=== PATIENT | female | born 1955 | race Hispanic/Latino ===

== ENCOUNTER → 2020-08-26 | Outpatient (CLI) | payer MEDICARE ==
[~2020-08-26] MED LIST: ATORVASTATIN CA40 MG PO; ENALAPRIL MALE2.5 MG PO; ERGOCALCIFEROL1 GM PO; FUROSEMIDE40 MG/4 ML PO; GABAPENTIN100 MG PO; GABAPENTIN300 MG PO; HUMULIN-R100 UNITS/ SQ; ISOSORBIDE MONO20 MG PO; LASIX40 MG PO; LEVAQUIN500 MG PO; METOPROLOL TART50 MG PO; NEXIUM40 MG PO; NOVOLIN N100 UNIT/1 SQ; PEPCID40 MG PO; TOPROL XL25 MG PO; ZOFRAN ODT4 MG SL
== END | DRG 951 ==
LOC: DX 15:41 → EDSTATUS 08-29 07:30
PROVIDERS: ATTEND Internal Medicine Gastroenterology
DX: Z01.812 Encounter for preprocedural laboratory examination (principal); Z20.822 Contact with and (suspected) exposure to COVID-19; Z01.818 Encounter for other preprocedural examination; R19.7 Diarrhea, unspecified; R63.4 Abnormal weight loss; R11.10 Vomiting, unspecified; E11.9 Type 2 diabetes mellitus without complications; I10 Essential (primary) hypertension
CPT/HCPCS: 93005; U0002

== ENCOUNTER 2020-10-07 10:11 | Inpatient (IN) | payer MEDICARE, OTHER ==
[~2020-10-07] VITALS: Ht 144.8 cm; Wt 45.4 kg
[2020-10-07 11:04] LABS: BASOPHILS # (AUTO) 0.1 (0.0-0.1); EOSINOPHILS # (AUTO) 0.1 (0.0-0.4); EOSINOPHILS % 0.8 % (0.0-6.0); HEMATOCRIT 28.8 % (34.2-44.1); HEMOGLOBIN 9.6 g/dL (12.0-16.0); LYMPHOCYTES # (AUTO) 2.6 (1.0-3.2); LYMPHOCYTES % 35.4 % (18.0-39.1); MEAN CORPUSCULAR HEMOGLOBIN 29.1 pg (28-32); MEAN CORPUSCULAR HGB CONC 33.3 g/dL (31-35); MEAN CORPUSCULAR VOLUME 87.3 fL (81-99); MONOCYTES # (AUTO) 0.5 (0.2-0.8); MONOCYTES % 6.7 % (4.4-11.3); NEUTROPHILS # (AUTO) 4.1 (2.1-6.9); NEUTROPHILS % 55.8 % (38.7-80.0); PLATELET COUNT 192 x10e3/uL (140-360); RED CELL DISTRIBUTION WIDTH 16.6 % (11.7-14.4)
[2020-10-07 11:27] LABS: INR 1.18; PROTHROMBIN TIME 15.8 seconds (11.9-14.5)
[2020-10-07 11:28] LABS: PARTIAL THROMBOPLASTIN TIME 42.5 seconds (23.8-35.5)
[2020-10-07 11:34] LABS: ALBUMIN 1.3 g/dL (3.5-5.0); ALBUMIN/GLOBULIN RATIO 0.2 (0.8-2.0); ANION GAP 19.5 mmol/L (8-16); CALCIUM 7.1 mg/dL (8.4-10.2); CREATININE, SERUM 7.48 mg/dL (0.57-1.11); MAGNESIUM 1.9 MG/DL (1.3-2.1); POTASSIUM 4.5 mmol/L (3.5-5.1)
[2020-10-07] MEDS ORDERED: SODIUM CHLORIDE 0.9% 50ML 50 ML ONE (11:45)
[2020-10-07] MEDS ORDERED: DEXTROSE 50% SYRINGE 50 ML IV PRN ×2 (11:45→13:45)
[2020-10-07] MEDS ORDERED: IOPAMIDOL 370 MG/ML 200 ML INFUS..BTL INJ ONE (11:45)
[2020-10-07 11:47] LABS: CREATINE KINASE MB 1.1 ng/mL (0-5.0)
[2020-10-07] MEDS ORDERED: DEXTROSE 50% SYRINGE 50 ML IV ONE ×2 (11:47→11:50)
[2020-10-07] MEDS: DEXTROSE 5% 1,000 ML IV SCH (12:17)
[2020-10-07] MEDS ORDERED: SODIUM CHLORIDE 0.9% 1000ML 2,000 ML ONE (13:54)
[2020-10-07 20:15] VITALS: BP 152/65
[2020-10-07 20:47] LABS: CREATINE KINASE MB 1.4 ng/mL (0-5.0)
[2020-10-07 21:00] VITALS: BP 152/65
[2020-10-07 23:00] VITALS: BP 152/65
[2020-10-07] MEDS ORDERED: HYDRALAZINE HCL 20 MG/ML VIAL IV PRN (23:00)
[2020-10-07] MEDS ORDERED: ONDANSETRON HCL INJ 2MG/ML 2ML 2 MG/ML VIAL IV PRN (23:00)
[2020-10-07 23:52] VITALS: BP 132/57
[2020-10-08] MEDS: DEXTROSE 5% 1,000 ML IV SCH ×2 (04:04→23:38)
[2020-10-08] MEDS: PANTOPRAZOLE 40 MG 10ML VIAL IV SCH ×2 (04:04→14:48)
[2020-10-08 05:22] VITALS: BP 127/44
[2020-10-08 06:21] LABS: BASOPHILS % 0.7 % (0.0-1.0); EOSINOPHILS # (AUTO) 0.1 (0.0-0.4); EOSINOPHILS % 1.1 % (0.0-6.0); HEMATOCRIT 25.2 % (34.2-44.1); HEMOGLOBIN 8.5 g/dL (12.0-16.0); LYMPHOCYTES # (AUTO) 1.2 (1.0-3.2); LYMPHOCYTES % 26.6 % (18.0-39.1); MEAN CORPUSCULAR HEMOGLOBIN 29.5 pg (28-32); MEAN CORPUSCULAR HGB CONC 33.7 g/dL (31-35); MEAN CORPUSCULAR VOLUME 87.5 fL (81-99); MONOCYTES # (AUTO) 0.4 (0.2-0.8); MONOCYTES % 8.8 % (4.4-11.3); NEUTROPHILS # (AUTO) 2.9 (2.1-6.9); NEUTROPHILS % 62.6 % (38.7-80.0); PLATELET COUNT 152 x10e3/uL (140-360); RED BLOOD COUNT 2.88 x10e6/uL (3.6-5.1); RED CELL DISTRIBUTION WIDTH 16.2 % (11.7-14.4)
[2020-10-08 07:20] LABS: ALBUMIN 1.1 g/dL (3.5-5.0); ALBUMIN/GLOBULIN RATIO 0.2 (0.8-2.0); ANION GAP 10.8 mmol/L (8-16); CREATININE, SERUM 3.8 mg/dL (0.57-1.11); POTASSIUM 3.8 mmol/L (3.5-5.1)
[2020-10-08 07:24] LABS: CALCIUM 6.9 mg/dL (8.4-10.2)
[2020-10-08 08:10] LABS: IRON 37 ug/dL (50-170); TRANSFERRIN < 70 mg/dL (180-382)
[2020-10-08 08:12] LABS: CHOL/HDL RATIO 3.6 (3.0-3.6); PHOSPHORUS 2.6 MG/DL (2.3-4.7)
[2020-10-08 08:16] VITALS: BP 126/43
[2020-10-08 08:20] VITALS: BP 126/43
[2020-10-08 08:32] LABS: THYROID STIMULATING HORMONE 39.323 uIU/mL (0.350-4.940)
[2020-10-08 11:48] VITALS: BP 129/55
[2020-10-08] MEDS ORDERED: OMEPRAZOLE40 MG PO (12:57)
[2020-10-08] MEDS ORDERED: GABAPENTIN100 MG PO (12:57)
[2020-10-08] MEDS ORDERED: FUROSEMIDE40 MG PO (12:57)
[2020-10-08] MEDS ORDERED: HYDRALAZINE HCL50 MG PO (12:57)
[2020-10-08] MEDS ORDERED: LEVOTHYROXINE50 MCG PO (12:57)
[2020-10-08] MEDS ORDERED: AMIODARONE HCL100 MG PO (12:57)
[2020-10-08] MEDS ORDERED: HYDROXYZINE PAM25 MG PO (12:57)
[2020-10-08] MEDS ORDERED: CLONIDINE HCL0.1 MG PO (12:57)
[2020-10-08] MEDS ORDERED: ONDANSETRON ODT8 MG PO (12:57)
[2020-10-08] MEDS ORDERED: ZYRTEC10 MG PO (12:57)
[2020-10-08 16:27] VITALS: BP 139/59
[2020-10-08] MEDS: LEVOTHYROXINE SODIUM 75 MCG TAB PO SCH (16:45)
[2020-10-08] MEDS: HYDRALAZINE HCL 25 MG TAB PO SCH (17:00)
[2020-10-08] MEDS ORDERED: NON-FORMULARY MEDICATION (Hydralazine Hcl* 50 MG) PO SCH (17:00)
[2020-10-08] MEDS: HYDROXYZINE HCL 25 MG TAB PO SCH (19:20)
[2020-10-08] MEDS: IRON SUCROSE 100 MG in SODIUM CHLORIDE 0.9% 100 ML 100 ML IV SCH (19:39)
[2020-10-08 20:00] VITALS: BP 125/53
[2020-10-09] VITALS (9 sets, daily range): BP systolic 102–167; BP diastolic 33–76
[2020-10-09] MEDS: PANTOPRAZOLE 40 MG 10ML VIAL IV SCH ×2 (02:07→14:21)
[2020-10-09] MEDS: LEVOTHYROXINE SODIUM 75 MCG TAB PO SCH (06:00)
[2020-10-09] MEDS ORDERED: NON-FORMULARY MEDICATION (Cetirizine Hcl (Zyrtec) 10 MG) PO SCH (09:00)
[2020-10-09] MEDS: HYDRALAZINE HCL 25 MG TAB PO SCH ×2 (09:00→17:00)
[2020-10-09] MEDS: HYDROXYZINE HCL 25 MG TAB PO SCH ×3 (09:00→20:30)
[2020-10-09] MEDS: AMIODARONE HCL 200 MG TAB PO SCH (13:30)
[2020-10-09] MEDS: LORATADINE 10 MG TAB PO SCH (13:30)
[2020-10-09] MEDS: IRON SUCROSE 100 MG in SODIUM CHLORIDE 0.9% 100 ML 100 ML IV SCH (15:00)
[2020-10-10] VITALS: BP 125/51
[2020-10-10 04:30] VITALS: BP 125/51
[2020-10-10] MEDS: PANTOPRAZOLE 40 MG 10ML VIAL IV SCH (04:50)
[2020-10-10 05:08] LABS: BASOPHILS % 0.9 % (0.0-1.0); EOSINOPHILS % 0.7 % (0.0-6.0); HEMATOCRIT 26.7 % (34.2-44.1); HEMOGLOBIN 9.1 g/dL (12.0-16.0); LYMPHOCYTES # (AUTO) 1.3 (1.0-3.2); MEAN CORPUSCULAR HEMOGLOBIN 29.7 pg (28-32); MEAN CORPUSCULAR HGB CONC 34.1 g/dL (31-35); MEAN CORPUSCULAR VOLUME 87.3 fL (81-99); MONOCYTES # (AUTO) 0.4 (0.2-0.8); MONOCYTES % 9.1 % (4.4-11.3); NEUTROPHILS # (AUTO) 2.7 (2.1-6.9); NEUTROPHILS % 60.1 % (38.7-80.0); PLATELET COUNT 118 x10e3/uL (140-360); RED BLOOD COUNT 3.06 x10e6/uL (3.6-5.1); RED CELL DISTRIBUTION WIDTH 16.5 % (11.7-14.4)
[2020-10-10 05:24] LABS: ANION GAP 9.7 mmol/L (8-16); CREATININE, SERUM 3.09 mg/dL (0.57-1.11); POTASSIUM 3.7 mmol/L (3.5-5.1)
[2020-10-10 05:54] LABS: CALCIUM 6.7 mg/dL (8.4-10.2)
[2020-10-10] MEDS: LEVOTHYROXINE SODIUM 75 MCG TAB PO SCH (06:08)
[2020-10-10 07:53] VITALS: BP 91/33
[2020-10-10] MEDS: HYDROXYZINE HCL 25 MG TAB PO SCH ×2 (08:35→15:00)
[2020-10-10] MEDS: LORATADINE 10 MG TAB PO SCH (08:35)
[2020-10-10] MEDS: HYDRALAZINE HCL 25 MG TAB PO SCH ×2 (08:35→17:00)
[2020-10-10] MEDS: AMIODARONE HCL 200 MG TAB PO SCH (08:35)
[2020-10-10 08:36] VITALS: BP 91/33
[2020-10-10] MEDS ORDERED: ACETAMINOPHEN/CODEINE 300MG - 30MG TAB PO PRN (10:15)
[2020-10-10] MEDS ORDERED: ACETAMINOPHEN 325 MG TAB PO PRN (10:15)
[2020-10-10] MEDS ORDERED: MELATONIN 5 MG TABLET PO PRN (10:15)
[2020-10-10] MEDS ORDERED: HYDRALAZINE HCL 20 MG/ML VIAL IV PRN (10:15)
[2020-10-10] MEDS ORDERED: SYNTHROID75 MCG PO (10:44)
[2020-10-10] MEDS ORDERED: PANTOPRAZOLE SO40 MG PO (10:44)
[2020-10-10 11:38] VITALS: BP 101/36
[2020-10-10] MEDS ORDERED: LIDOCAINE HCL 2% LOCAL INJ 5 ML SDV VIAL INJ ONE (13:05)
[2020-10-10] MEDS ORDERED: PROPOFOL IV EMULSION 10 MG/ML 20 ML VIAL ONE (13:05)
[2020-10-10] MEDS ORDERED: MIDAZOLAM HCL 2 MG/2 ML VIAL ONE (13:31)
[2020-10-10 15:25] VITALS: BP 128/62
[2020-10-10] MEDS ORDERED: ONDANSETRON HCL 4 MG ORAL DISINTEGRATING TAB PO PRN (18:30)
[2020-10-10] MEDS: IRON SUCROSE 100 MG in SODIUM CHLORIDE 0.9% 100 ML 100 ML IV SCH (18:30)
[2020-10-10] MEDS ORDERED: PANTOPRAZOLE SOD 40 MG TABEC PO SCH (21:00)
== END 2020-10-10 19:07 | disposition home health service (06) | DRG 391 ==
LOC: ER 10:54 → ERHOLD 13:31 → MED/SURG2 18:49
PROVIDERS: ADMIT Internal Medicine; ATTEND Internal Medicine
PROC: 5A1D70Z Performance of Urinary Filtration, Intermittent, Less than 6 Hours Per Day (ICD-10-PCS; principal; 2020-10-07)
PROC: 5A1D70Z Performance of Urinary Filtration, Intermittent, Less than 6 Hours Per Day (ICD-10-PCS; 2020-10-09)
PROC: 0DB68ZX Excision of Stomach, Via Natural or Artificial Opening Endoscopic, Diagnostic (ICD-10-PCS; 2020-10-10)
PROC: 0D748ZZ Dilation of Esophagogastric Junction, Via Natural or Artificial Opening Endoscopic (ICD-10-PCS; 2020-10-10)
DX: K22.2 Esophageal obstruction (principal); N18.6 End stage renal disease; K22.11 Ulcer of esophagus with bleeding; E44.1 Mild protein-calorie malnutrition; I12.0 Hypertensive chronic kidney disease with stage 5 chronic kidney disease or end stage renal disease; R18.8 Other ascites; R45.851 Suicidal ideations; K80.10 Calculus of gallbladder with chronic cholecystitis without obstruction; D62 Acute posthemorrhagic anemia; K76.6 Portal hypertension; R62.7 Adult failure to thrive; E11.22 Type 2 diabetes mellitus with diabetic chronic kidney disease; R10.9 Unspecified abdominal pain; Z68.21 Body mass index [BMI] 21.0-21.9, adult; Z99.2 Dependence on renal dialysis; K21.9 Gastro-esophageal reflux disease without esophagitis; E78.5 Hyperlipidemia, unspecified; Z88.0 Allergy status to penicillin; Z88.8 Allergy status to other drugs, medicaments and biological substances; E11.649 Type 2 diabetes mellitus with hypoglycemia without coma; I25.2 Old myocardial infarction; Z95.1 Presence of aortocoronary bypass graft; I25.10 Atherosclerotic heart disease of native coronary artery without angina pectoris; Z95.0 Presence of cardiac pacemaker; Z20.822 Contact with and (suspected) exposure to COVID-19; R13.10 Dysphagia, unspecified; K74.60 Unspecified cirrhosis of liver; K52.9 Noninfective gastroenteritis and colitis, unspecified; Z85.12 Personal history of malignant neoplasm of trachea; Z82.49 Family history of ischemic heart disease and other diseases of the circulatory system; Z84.89 Family history of other specified conditions; E11.319 Type 2 diabetes mellitus with unspecified diabetic retinopathy without macular edema; E11.40 Type 2 diabetes mellitus with diabetic neuropathy, unspecified; E11.51 Type 2 diabetes mellitus with diabetic peripheral angiopathy without gangrene; R22.31 Localized swelling, mass and lump, right upper limb; E03.9 Hypothyroidism, unspecified; D63.1 Anemia in chronic kidney disease; F32.9 Major depressive disorder, single episode, unspecified; K82.8 Other specified diseases of gallbladder; E83.51 Hypocalcemia; K29.70 Gastritis, unspecified, without bleeding; K31.89 Other diseases of stomach and duodenum
CPT/HCPCS: 36415; 43239; 43450; 71045; 74177; 74230; 76705; 78227; 80048; 80053; 80061; 82150; 82270; 82550; 82553; 82607; 82746; 82948; 83036; 83518; 83525; 83540; 83690; 83735; 83880; 84100; 84443; 84466; 84484; 84681; 85025; 85045; 85610; 85730; 86704; 86706; 87040; 87070; 87340; 88305; 88312; 93005; 93306; 93931; 93971; 97139; 99251; 99284; A9537; J1756; J2001; J2250; J2405; J3410; J7030; J7070; J7799; Q0177; Q9967; U0002

== ENCOUNTER 2020-10-27 13:44 | Inpatient (IN) | payer MEDICARE, OTHER ==
[~2020-10-27] VITALS: Ht 144.8 cm; Wt 47.6 kg
[~2020-10-27 13:44] MED LIST changes: +AMIODARONE HCL100 MG PO; +CLONIDINE HCL0.1 MG PO; +FUROSEMIDE40 MG PO; +HYDRALAZINE HCL50 MG PO; +HYDROXYZINE PAM25 MG PO; +LEVOTHYROXINE50 MCG PO; +OMEPRAZOLE40 MG PO; +ONDANSETRON ODT8 MG PO; +PANTOPRAZOLE SO40 MG PO; +SYNTHROID75 MCG PO; +ZYRTEC10 MG PO
[2020-10-27] MEDS ORDERED: ONDANSETRON HCL INJ 2MG/ML 2ML 2 MG/ML VIAL IV STA (14:36)
[2020-10-27] MEDS ORDERED: PANTOPRAZOLE 40 MG 10ML VIAL IV STA (14:36)
[2020-10-27] MEDS ORDERED: DEXTROSE 50% SYRINGE 50 ML IV ONE ×2 (14:45→14:50)
[2020-10-27 14:46] LABS: BASOPHILS % 0.4 % (0.0-1.0); EOSINOPHILS % 0.2 % (0.0-6.0); HEMATOCRIT 29.8 % (34.2-44.1); HEMOGLOBIN 9.7 g/dL (12.0-16.0); LYMPHOCYTES % 22.6 % (18.0-39.1); MEAN CORPUSCULAR HEMOGLOBIN 30.2 pg (28-32); MEAN CORPUSCULAR HGB CONC 32.6 g/dL (31-35); MEAN CORPUSCULAR VOLUME 92.8 fL (81-99); MONOCYTES # (AUTO) 0.3 (0.2-0.8); MONOCYTES % 6.3 % (4.4-11.3); NEUTROPHILS # (AUTO) 3.2 (2.1-6.9); NEUTROPHILS % 70.1 % (38.7-80.0); PLATELET COUNT 213 x10e3/uL (140-360); RED BLOOD COUNT 3.21 x10e6/uL (3.6-5.1); RED CELL DISTRIBUTION WIDTH 19.8 % (11.7-14.4)
[2020-10-27 14:52] LABS: INR 1.31
[2020-10-27 14:53] LABS: PARTIAL THROMBOPLASTIN TIME 44.5 seconds (23.8-35.5)
[2020-10-27 15:02] LABS: ALBUMIN 1.2 g/dL (3.5-5.0); ALBUMIN/GLOBULIN RATIO 0.2 (0.8-2.0); ANION GAP 20.1 mmol/L (8-16); CREATININE, SERUM 6.9 mg/dL (0.57-1.11); MAGNESIUM 1.8 MG/DL (1.3-2.1)
[2020-10-27 15:08] LABS: CREATINE KINASE MB 1.6 ng/mL (0-5.0)
[2020-10-27 15:36] LABS: POTASSIUM 6.1 mmol/L (3.5-5.1)
[2020-10-27] MEDS ORDERED: SODIUM BICARBONATE 8.4% INJ 50 ML SYR IV STA (15:52)
[2020-10-27] MEDS ORDERED: DEXTROSE 50% SYRINGE 50 ML IV STA (15:52)
[2020-10-27] MEDS ORDERED: INSULIN REGULAR, HUMAN 100 UNIT/1 ML 3ML VIAL IV ONE (16:00)
[2020-10-27] MEDS ORDERED: SOD POLYSTYRENE SULFONATE SUSP 15 GM/60 ML BTL PO ONE (16:00)
[2020-10-27] MEDS ORDERED: IOPAMIDOL 370 MG/ML 200 ML INFUS..BTL INJ ONE (16:19)
[2020-10-27] MEDS ORDERED: SODIUM CHLORIDE 0.9% 50ML 50 ML ONE (16:19)
[2020-10-27] MEDS ORDERED: CALCIUM GLUCONATE 10% INJ 9.3 MEQ in SODIUM CHLORIDE 0.9% 100 ML 100 ML IV ONE (16:30)
[2020-10-27] MEDS ORDERED: ATORVASTATIN CA20 MG PO (16:37)
[2020-10-27] MEDS ORDERED: RENAGEL800 MG PO (16:37)
[2020-10-27] MEDS ORDERED: ONDANSETRON HCL INJ 2MG/ML 2ML 2 MG/ML VIAL IV PRN (18:15)
[2020-10-27] MEDS ORDERED: DEXTROSE 50% SYRINGE 50 ML IV PRN (18:15)
[2020-10-27 20:33] VITALS: BP 114/68
[2020-10-27 20:54] VITALS: BP 114/68
[2020-10-27] MEDS: INSULIN LISPRO 100 UNIT/1 ML 3ML VIAL SQ SCH (21:00)
[2020-10-27 22:23] VITALS: BP 114/68
[2020-10-28] VITALS (7 sets, daily range): BP systolic 96–135; BP diastolic 44–76
[2020-10-28 00:38] LABS: CREATINE KINASE MB 1.6 ng/mL (0-5.0)
[2020-10-28 05:50] LABS: BASOPHILS % 0.6 % (0.0-1.0); EOSINOPHILS % 0.4 % (0.0-6.0); HEMATOCRIT 27.1 % (34.2-44.1); HEMOGLOBIN 9.1 g/dL (12.0-16.0); LYMPHOCYTES % 20.8 % (18.0-39.1); MEAN CORPUSCULAR HEMOGLOBIN 30.2 pg (28-32); MEAN CORPUSCULAR HGB CONC 33.6 g/dL (31-35); MONOCYTES # (AUTO) 0.4 (0.2-0.8); MONOCYTES % 7.3 % (4.4-11.3); NEUTROPHILS # (AUTO) 3.5 (2.1-6.9); NEUTROPHILS % 70.7 % (38.7-80.0); PLATELET COUNT 215 x10e3/uL (140-360); RED BLOOD COUNT 3.01 x10e6/uL (3.6-5.1); RED CELL DISTRIBUTION WIDTH 19.9 % (11.7-14.4)
[2020-10-28 06:42] LABS: ALBUMIN 1.1 g/dL (3.5-5.0); ALBUMIN/GLOBULIN RATIO 0.2 (0.8-2.0); ANION GAP 13.6 mmol/L (8-16); CALCIUM 7.3 mg/dL (8.4-10.2); CREATININE, SERUM 7.28 mg/dL (0.57-1.11); POTASSIUM 5.6 mmol/L (3.5-5.1)
[2020-10-28 07:17] LABS: CREATINE KINASE MB 1.5 ng/mL (0-5.0)
[2020-10-28] MEDS: INSULIN LISPRO 100 UNIT/1 ML 3ML VIAL SQ SCH ×4 (07:30→19:47)
[2020-10-28] MEDS ORDERED: SODIUM CHLORIDE 0.9% 50ML 50 ML ONE (11:55)
[2020-10-28] MEDS: CEFEPIME HCL 1GM 1 GM in SODIUM CHLORIDE 0.9% 50ML 50 ML IV SCH (12:05)
[2020-10-28] MEDS ORDERED: SODIUM CHLORIDE 0.9% 250ML 250 ML ONE (12:10)
[2020-10-28] MEDS: SEVELAMER CARBONATE 800 MG TAB PO SCH ×2 (12:10→17:01)
[2020-10-28] MEDS: ONDANSETRON HCL 4 MG ORAL DISINTEGRATING TAB PO SCH ×2 (12:10→17:01)
[2020-10-28] MEDS: METRONIDAZOLE 500MG/NS 100ML 100 ML IV SCH ×2 (13:34→20:55)
[2020-10-28] MEDS ORDERED: ALBUMIN 25% 12.5GM 50ML 100 ML IV ONE (14:51)
[2020-10-28] MEDS ORDERED: SODIUM CHLORIDE 0.9% 1000ML 2,000 ML ONE (15:26)
[2020-10-28] MEDS ORDERED: SODIUM CHLORIDE 0.9% 250ML 500 ML IV PRN (16:15)
[2020-10-28] MEDS ORDERED: ALBUMIN 25% 12.5GM 0.25 GM/ML BTL IV PRN (16:15)
[2020-10-28] MEDS ORDERED: SODIUM CHLORIDE 0.9% 1000ML 2,000 ML IV PRN (16:15)
[2020-10-28] MEDS: GABAPENTIN 100 MG CAP PO SCH (17:01)
[2020-10-28] MEDS: ATORVASTATIN 40 MG TAB PO SCH (20:55)
[2020-10-28] MEDS ORDERED: PANTOPRAZOLE SOD 40 MG TABEC PO STA (23:38)
[2020-10-28] MEDS ORDERED: DICYCLOMINE HCL 10 MG CAP PO STA (23:44)
[2020-10-29] VITALS (7 sets, daily range): BP systolic 99–147; BP diastolic 44–84
[2020-10-29] MEDS: METRONIDAZOLE 500MG/NS 100ML 100 ML IV SCH ×3 (04:21→19:48)
[2020-10-29 05:30] LABS: BASOPHILS % 0.5 % (0.0-1.0); EOSINOPHILS % 0.8 % (0.0-6.0); HEMATOCRIT 24.5 % (34.2-44.1); HEMOGLOBIN 8.1 g/dL (12.0-16.0); LYMPHOCYTES # (AUTO) 0.7 (1.0-3.2); LYMPHOCYTES % 18.6 % (18.0-39.1); MEAN CORPUSCULAR HEMOGLOBIN 30.1 pg (28-32); MEAN CORPUSCULAR HGB CONC 33.1 g/dL (31-35); MEAN CORPUSCULAR VOLUME 91.1 fL (81-99); MONOCYTES # (AUTO) 0.4 (0.2-0.8); MONOCYTES % 10.6 % (4.4-11.3); NEUTROPHILS # (AUTO) 2.8 (2.1-6.9); PLATELET COUNT 142 x10e3/uL (140-360); RED BLOOD COUNT 2.69 x10e6/uL (3.6-5.1); RED CELL DISTRIBUTION WIDTH 19.9 % (11.7-14.4)
[2020-10-29] MEDS: LEVOTHYROXINE SODIUM 75 MCG TAB PO SCH (05:43)
[2020-10-29 05:57] LABS: ALBUMIN 1.5 g/dL (3.5-5.0); ALBUMIN/GLOBULIN RATIO 0.3 (0.8-2.0); ANION GAP 11.7 mmol/L (8-16); CALCIUM 7.1 mg/dL (8.4-10.2); CREATININE, SERUM 3.26 mg/dL (0.57-1.11); MAGNESIUM 1.7 MG/DL (1.3-2.1); POTASSIUM 3.7 mmol/L (3.5-5.1)
[2020-10-29] MEDS: INSULIN LISPRO 100 UNIT/1 ML 3ML VIAL SQ SCH ×4 (07:30→21:00)
[2020-10-29] MEDS ORDERED: PANTOPRAZOLE SOD 40 MG TABEC PO SCH (07:30)
[2020-10-29] MEDS: SEVELAMER CARBONATE 800 MG TAB PO SCH ×3 (08:42→16:06)
[2020-10-29] MEDS: DICYCLOMINE HCL 10 MG CAP PO SCH ×3 (08:43→21:46)
[2020-10-29] MEDS: NPH, HUMAN INSULIN ISOPHANE 100 UNIT/1 ML 3ML VIAL SQ SCH (08:43)
[2020-10-29] MEDS: GABAPENTIN 100 MG CAP PO SCH ×2 (08:43→16:06)
[2020-10-29] MEDS: FUROSEMIDE 40 MG TAB PO SCH (08:43)
[2020-10-29] MEDS: ONDANSETRON HCL 4 MG ORAL DISINTEGRATING TAB PO SCH ×3 (08:43→16:06)
[2020-10-29] MEDS: PANTOPRAZOLE SOD 40 MG TABEC PO SCH ×2 (08:52→16:06)
[2020-10-29] MEDS: CEFEPIME HCL 1GM 1 GM in SODIUM CHLORIDE 0.9% 50ML 50 ML IV SCH (11:32)
[2020-10-29] MEDS: ATORVASTATIN 40 MG TAB PO SCH (21:46)
[2020-10-30] VITALS: BP 117/47
[2020-10-30 04:00] VITALS: BP 116/47
[2020-10-30] MEDS: METRONIDAZOLE 500MG/NS 100ML 100 ML IV SCH ×2 (04:20→12:00)
[2020-10-30 05:02] LABS: BASOPHILS % 0.7 % (0.0-1.0); HEMATOCRIT 22.4 % (34.2-44.1); HEMOGLOBIN 7.4 g/dL (12.0-16.0); LYMPHOCYTES # (AUTO) 1.2 (1.0-3.2); LYMPHOCYTES % 27.8 % (18.0-39.1); MEAN CORPUSCULAR HEMOGLOBIN 30.3 pg (28-32); MEAN CORPUSCULAR VOLUME 91.8 fL (81-99); MONOCYTES # (AUTO) 0.4 (0.2-0.8); MONOCYTES % 10.5 % (4.4-11.3); NEUTROPHILS # (AUTO) 2.5 (2.1-6.9); NEUTROPHILS % 59.8 % (38.7-80.0); PLATELET COUNT 149 x10e3/uL (140-360); RED BLOOD COUNT 2.44 x10e6/uL (3.6-5.1); RED CELL DISTRIBUTION WIDTH 19.9 % (11.7-14.4)
[2020-10-30 05:18] LABS: ALBUMIN 1.3 g/dL (3.5-5.0); ALBUMIN/GLOBULIN RATIO 0.3 (0.8-2.0); ANION GAP 8.4 mmol/L (8-16); CREATININE, SERUM 2.63 mg/dL (0.57-1.11); POTASSIUM 3.4 mmol/L (3.5-5.1)
[2020-10-30 05:23] LABS: CALCIUM 6.9 mg/dL (8.4-10.2)
[2020-10-30] MEDS: LEVOTHYROXINE SODIUM 75 MCG TAB PO SCH (06:40)
[2020-10-30 07:21] VITALS: BP 116/48
[2020-10-30] MEDS: INSULIN LISPRO 100 UNIT/1 ML 3ML VIAL SQ SCH ×3 (07:30→16:30)
[2020-10-30 08:14] VITALS: BP 116/48
[2020-10-30] MEDS: PANTOPRAZOLE SOD 40 MG TABEC PO SCH ×2 (08:30→16:30)
[2020-10-30] MEDS: NPH, HUMAN INSULIN ISOPHANE 100 UNIT/1 ML 3ML VIAL SQ SCH (09:00)
[2020-10-30] MEDS: DICYCLOMINE HCL 10 MG CAP PO SCH ×2 (10:00→14:49)
[2020-10-30] MEDS: FUROSEMIDE 40 MG TAB PO SCH (10:00)
[2020-10-30] MEDS: GABAPENTIN 100 MG CAP PO SCH ×2 (10:00→16:53)
[2020-10-30] MEDS: SEVELAMER CARBONATE 800 MG TAB PO SCH ×3 (10:00→16:53)
[2020-10-30] MEDS: ONDANSETRON HCL 4 MG ORAL DISINTEGRATING TAB PO SCH ×3 (10:21→16:53)
[2020-10-30] MEDS: CEFEPIME HCL 1GM 1 GM in SODIUM CHLORIDE 0.9% 50ML 50 ML IV SCH (10:48)
[2020-10-30 11:36] VITALS: BP 100/48
[2020-10-30] MEDS ORDERED: DICYCLOMINE HCL10 MG PO (13:00)
[2020-10-30 15:35] VITALS: BP 126/49
== END 2020-10-30 17:03 | disposition home or self-care (01) | DRG 432 ==
LOC: ER 14:24 → ERHOLD 18:06 → MED/SURG 20:07
PROVIDERS: ADMIT Internal Medicine; ATTEND Internal Medicine
PROC: 0W9G3ZZ Drainage of Peritoneal Cavity, Percutaneous Approach (ICD-10-PCS; principal; 2020-10-28)
DX: K74.60 Unspecified cirrhosis of liver (principal); N18.6 End stage renal disease; I12.0 Hypertensive chronic kidney disease with stage 5 chronic kidney disease or end stage renal disease; K82.1 Hydrops of gallbladder; R18.8 Other ascites; E11.22 Type 2 diabetes mellitus with diabetic chronic kidney disease; K21.9 Gastro-esophageal reflux disease without esophagitis; E78.5 Hyperlipidemia, unspecified; E11.649 Type 2 diabetes mellitus with hypoglycemia without coma; D63.1 Anemia in chronic kidney disease; E87.5 Hyperkalemia; E03.9 Hypothyroidism, unspecified; E11.21 Type 2 diabetes mellitus with diabetic nephropathy; Z95.1 Presence of aortocoronary bypass graft; Z95.810 Presence of automatic (implantable) cardiac defibrillator; Z88.0 Allergy status to penicillin; Z88.8 Allergy status to other drugs, medicaments and biological substances; Z85.12 Personal history of malignant neoplasm of trachea; Z85.89 Personal history of malignant neoplasm of other organs and systems; Z83.3 Family history of diabetes mellitus; Z99.2 Dependence on renal dialysis; Z79.4 Long term (current) use of insulin; M79.89 Other specified soft tissue disorders; Z20.822 Contact with and (suspected) exposure to COVID-19; R19.7 Diarrhea, unspecified
CPT/HCPCS: 36415; 49083; 71045; 74176; 74470; 80053; 82105; 82270; 82550; 82553; 82948; 83630; 83690; 83735; 83880; 83993; 84484; 85025; 85610; 85730; 86039; 86704; 86706; 86707; 87045; 87177; 87350; 93005; 93971; 99251; 99285; C1729; J0610; J0692; J1817; J2405; J7030; J7050; J7799; Q0162; Q9967; U0002